=== PATIENT | female | born 1995 | race Caucasian/White ===

== ENCOUNTER 2018-11-06 22:43 | Inpatient (IN) | payer MEDICAID ==
[~2018-11-06 22:43] MED LIST: Oxytocin/0.9 % Sodium Chloride 30 UNIT/500 ML BAG IV SCH
[2018-11-06] MEDS ORDERED: Ondansetron 4 MG/2 ML SDV IVPUSH PRN (23:20)
[2018-11-06] MEDS ORDERED: Terbutaline 1 MG/ML SDV SUBCUT PRN (23:52)
[2018-11-06] MEDS ORDERED: Misoprostol 25 MCG (1/4 of 100 MCG) Tab PO PRN (23:52)
[2018-11-07] MEDS ORDERED: Sodium Chloride 0.9% 10 ML Syringe FLUSH PRN (00:14)
[2018-11-07] MEDS ORDERED: Misoprostol 200 MCG Tab PO PRN (00:14)
[2018-11-07] MEDS ORDERED: Lidocaine 1% 50 ML MDV INJECT PRN (00:14)
[2018-11-07] MEDS ORDERED: Water For Irrigation,Sterile 1,000 ML Container IRR PRN (00:14)
[2018-11-07] MEDS ORDERED: Sodium Chloride 0.9% 2.5 ML Syringe FLUSH PRN (00:14)
[2018-11-07] MEDS ORDERED: Methylergonovine 0.2 MG/1 ML Amp IM PRN (00:14)
[2018-11-07] MEDS ORDERED: Butorphanol 1 MG/ML SDV IVPUSH PRN (00:14)
[2018-11-07] MEDS ORDERED: Carboprost Tromethamine 250 MCG/1 ML Amp IM PRN (00:14)
[2018-11-07] MEDS ORDERED: Sodium Chloride 0.9% 10 ML SDV IV PRN (00:14)
[2018-11-07] MEDS ORDERED: Tranexamic Acid 1,000 MG in Sodium Chloride 0.9% 100 ML IV PRN (00:14)
[2018-11-07] MEDS ORDERED: Oxytocin/0.9 % Sodium Chloride 30 UNIT/500 ML BAG IV SCH (00:15)
[2018-11-07] MEDS: Lactated Ringers 1,000 ML IV SCH ×5 (01:26→06:03)
[2018-11-07] MEDS ORDERED: Ropivacaine HCl/PF 100 ML ONE (03:39)
[2018-11-07] MEDS ORDERED: fentaNYL 100 MCG/2 ML SDV ONE (03:39)
--- NOTE | 2018-11-07 04:02 | PCM.PREANE ---
Preanesthetic Assessment - Anesthesia/Transfusion/Family Hx Anesthesia History: No Prior Anesthesia Family History of Anesthesia Reaction: No Transfusion History: No Prior Transfusion(s) - Review of Systems General: No Symptoms Pulmonary: No Symptoms Cardiovascular: No Symptoms Gastrointestinal: No Symptoms Neurological: No Symptoms Other: Reports: None - Physical Assessment NPO Status Date: 11/07/18 NPO Status Time: 00:30 Height: 1.57 m Weight: 61.235 kg ASA Class: 1 Mental Status: Alert & Oriented x3 Dentition: Reports: Normal Dentition - Lab Values: Laboratory Last Values WBC 11.66 K/uL (4.0-11.0) H 11/07/18 00:30 RBC 3.67 M/uL (4.30-5.90) L 11/07/18 00:30 Hgb 11.1 g/dL (12.0-16.0) L 11/07/18 00:30 Hct 33.7 % (36.0-46.0) L 11/07/18 00:30 MCV 91.8 fL (80.0-98.0) 11/07/18 00:30 MCH 30.2 pg (27.0-32.0) 11/07/18 00:30 MCHC 32.9 g/dL (31.0-37.0) 11/07/18 00:30 RDW Std Deviation 45.7 fl (28.0-62.0) 11/07/18 00:30 RDW Coeff of Alessia 14 % (11.0-15.0) 11/07/18 00:30 Plt Count 176 K/uL (150-400) 11/07/18 00:30 MPV 8.60 fL (7.40-12.00) 11/07/18 00:30 Membrane Rupture POSITIVE 11/06/18 23:15 Blood Type A NEGATIVE 11/07/18 00:30 Antibody Screen NEGATIVE 11/07/18 00:30 - Allergies Allergies/Adverse Reactions: Allergies Allergy/AdvReac Type Severity Reaction Status Date / Time No Known Allergies Allergy Verified 10/06/17 19:14 MDT - Acknowledgements Anesthesia Type Planned: Epidural Pt an Appropriate Candidate for the Planned Anesthesia: Yes Alternatives and Risks of Anesthesia Discussed w Pt/Guardian: Yes Pt/Guardian Understands and Agrees with Anesthesia Plan: Yes PreAnesthesia Questionnaire - Past Health History Medical/Surgical History: Denies Medical/Surgical History HEENT History: Reports: Impaired Vision Cardiovascular History: Reports: Other (See Below) Other Cardiovascular History: 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 Cardiovascular Surgical History: Reports: None GI Surgical History: Reports: None - SUBSTANCE USE Smoking Status *Q: Former Smoker Tobacco Use Within Last Twelve Months: No Second Hand Smoke Exposure: Yes Recreational Drug Use History: No - HOME MEDS Home Medications: Home Meds Cholecalciferol (Vitamin D3) [Vitamin D] 5,000 unit PO WEEKLY 11/06/18 [History] Pnv No.95/Ferrous Fum/Folic AC [ Caplet] 1 each PO DAILY 11/06/18 [ History] - CURRENT (IN HOUSE) MEDS Current Meds: Current Medications Butorphanol Tartrate (Stadol) 1 mg IVPUSH Q1H PRN PRN Reason: Pain Last Admin: 11/07/18 01:04 Dose: 1 mg Carboprost Tromethamine (Hemabate Ds) 250 mcg IM ASDIRECTED PRN PRN Reason: Post Hemorrhage Oxytocin/Sodium Chloride (Oxytocin 30 Unit/500 Ml-Ns) 30 unit in 500 mls @ 2 mls/hr IV TITRATE SU[facility]; Protocol Tranexamic Acid 1,000 mg/ (Sodium Chloride) 110 mls @ 660 mls/hr IV ONETIME PRN PRN Reason: Bleeding Lactated Ringer's (Ringers, Lactated) 1,000 mls @ 150 mls/hr IV ASDIRECTED SUKHI Last Admin: 11/07/18 03:24 Dose: 999 mls/hr Oxytocin/Sodium Chloride (Oxytocin 30 Unit/500 Ml-Ns) 30 unit in 500 mls @ 500 mls/hr IV TITRATE [facility] Lidocaine HCl (Xylocaine 1%) 50 ml INJECT ONETIME PRN PRN Reason: Laceration repair Methylergonovine Maleate (Methergine) 0.2 mg IM ASDIRECTED PRN PRN Reason: Post Hemorrhage Misoprostol (Cytotec) 50 mcg PO ONETIME PRN PRN Reason: Cervical Ripening Last Admin: 11/07/18 00:29 Dose: 50 mcg Misoprostol (Cytotec) 200 mcg PO ONETIME PRN PRN Reason: Post Hemorrhage Ondansetron HCl (Zofran) 4 mg IVPUSH Q4H PRN PRN Reason: Nausea/Vomiting Sodium Chloride (Saline Flush) 10 ml FLUSH ASDIRECTED PRN PRN Reason: Keep Vein Open Sodium Chloride (Saline Flush) 2.5 ml FLUSH ASDIRECTED PRN PRN Reason: Keep Vein Open Sodium Chloride (Normal Saline) 10 ml IV ASDIRECTED PRN PRN Reason: IV Use Sterile Water (Sterile Water For Irrigation) 1,000 ml IRR ASDIRECTED PRN PRN Reason: delivery Terbutaline Sulfate (Brethine) 0.25 mg SUBCUT ASDIRECTED PRN PRN Reason: Tacysystole Discontinued Medications Fentanyl (Sublimaze) Confirm Administered Dose 100 mcg .ROUTE .STK-MED ONE Stop: 11/07/18 03:40 Ropivacaine (Naropin 0.2%) Confirm Administered Dose 100 mls @ as directed .ROUTE .STK-MED ONE Stop: 11/07/18 03:40
--- NOTE | 2018-11-07 04:06 | PCM.PRNOTE ---
- Free Text/Narrative Note: Anes Note Patient request epidural for L&D. Sitting position. Level L2-L3, midline approach. Sterile technique, chloroprrep scrub to lumbar area. Sterile fenestrated drape applied. Epidural space easily achieved single attempt with ease, cath threaded 5 cm with ease.\ at 0352. Sterile dressing applied. Test 0354 3 cc 1.5% lido with epi negative. Load 10 cc 0.2% ropivicaine with 1 mcg cc fentanyl added in slow divided doses at 0356. Pump started with same solution at 0359 Rate is 8 cc hr with 6 cc q 20 min prn bolus. Patient reports excelletn analgesia. Time with patient [id number]. Kurt Adams CRNA
[2018-11-07] MEDS ORDERED: Sodium Chloride 0.9% 100 ML ONE (10:16)
[2018-11-07] MEDS ORDERED: Ampicillin 2 GM AdvVial IV ONE (10:16)
[2018-11-07] MEDS ORDERED: Acetaminophen 1,000 MG in Premix Bag 1 BAG IV ONE (10:25)
[2018-11-07] MEDS ORDERED: Ampicillin 2 GM in Sodium Chloride 0.9% 100 ML IV ONE (10:45)
[2018-11-07] MEDS ORDERED: Witch Hazel Medicated Pads 40/Jar TOP PRN (11:07)
[2018-11-07] MEDS ORDERED: oxyCODONE 5 MG Tab PO PRN (11:07)
[2018-11-07] MEDS ORDERED: Bisacodyl 10 MG Supp RECTAL PRN (11:07)
[2018-11-07] MEDS ORDERED: Ibuprofen 400 MG Tab PO PRN (11:07)
[2018-11-07] MEDS ORDERED: Docusate Sodium 100 MG Cap PO PRN (11:07)
[2018-11-07] MEDS ORDERED: Acetaminophen 500 MG Tab PO PRN ×2 (11:07)
[2018-11-07] MEDS ORDERED: Benzocaine/Menthol 20%-0.5% Spray 78 GM Cannister TOP PRN (11:07)
[2018-11-07] MEDS ORDERED: Lanolin 100% Cream 7 GM Tube TOP PRN (11:07)
--- NOTE | 2018-11-07 11:21 | PCM.DEL ---
L & D Note - General Info Date of Service: 11/07/18 Mother's Due Date: 11/13/18 - Delivery Note Labor: Spontaneous Cervical Ripening Method: Misoprostil, Oxytocin Delivery Outcome: Livebirth Delivery Method: Spontaneous Vaginal Delivery-Single Presentation: Left Occiput Anterior (JAVI) Nuchal Cord: None Anesthesia Type: Epidural Laceration: 1st Degree Suture type: Other (monocryl) Suture size: 2-0 Placenta: Spontaneous Estimated Blood Loss: 350 Resuscitation Needed: No [place]: Suctioned, Cathether, Stimulated, Warmed, Warmer Used Score 1 min: 3 Score 5 min: 9 Delivery Comments (Free Text/Narrative):: Live male delivered at 1035am , 3/9 weight 2190g . - General Info Date of Service: 11/07/18 - Patient Data Weight - Most Recent: 61.235 kg Lab Results Last 24 Hours: Laboratory Results - last 24 hr 11/06/18 11/07/18 11/07/18 Range/Units 23:15 00:30 00:30 WBC 11.66 H (4.0-11.0) K/uL RBC 3.67 L (4.30-5.90) M/uL Hgb 11.1 L (12.0-16.0) g/dL Hct 33.7 L (36.0-46.0) % MCV 91.8 (80.0-98.0) fL MCH 30.2 (27.0-32.0) pg MCHC 32.9 (31.0-37.0) g/dL RDW Std Deviation 45.7 (28.0-62.0) fl RDW Coeff of Alessia 14 (11.0-15.0) % Plt Count 176 (150-400) K/uL MPV 8.60 (7.40-12.00) fL Membrane Rupture POSITIVE Blood Type A NEGATIVE Antibody Screen NEGATIVE Med Orders - Current: Current Medications Acetaminophen (Tylenol Extra Strength) 500 mg PO Q4H PRN PRN Reason: Pain Acetaminophen (Tylenol Extra Strength) 1,000 mg PO Q4H PRN PRN Reason: Pain Benzocaine/Menthol (Dermoplast Pain Relief 20%-0.5% [place]) 78 gm TOP ASDIRECTED PRN PRN Reason: Perineal Comfort Measure Bisacodyl (Dulcolax) 10 mg RECTAL ONETIME PRN PRN Reason: Constipation Butorphanol Tartrate (Stadol) 1 mg IVPUSH Q1H PRN PRN Reason: Pain Last Admin: 11/07/18 01:04 Dose: 1 mg Carboprost Tromethamine (Hemabate Ds) 250 mcg IM ASDIRECTED PRN PRN Reason: Post Hemorrhage Docusate Sodium (Colace) 100 mg PO BID PRN PRN Reason: Constipation Emollient Ointment (Lansinoh Hpa) 0 gm TOP ASDIRECTED PRN PRN Reason: Sore Nipples Oxytocin/Sodium Chloride (Oxytocin 30 Unit/500 Ml-Ns) 30 unit in 500 mls @ 2 mls/hr IV TITRATE SUKHI; Protocol Last Admin: 11/07/18 08:51 Dose: 2 munits/min, 2 mls/hr Tranexamic Acid 1,000 mg/ (Sodium Chloride) 110 mls @ 660 mls/hr IV ONETIME PRN PRN Reason: Bleeding Lactated Ringer's (Ringers, Lactated) 1,000 mls @ 150 mls/hr IV ASDIRECTED SUKHI Last Admin: 11/07/18 06:03 Dose: 150 mls/hr Oxytocin/Sodium Chloride (Oxytocin 30 Unit/500 Ml-Ns) 30 unit in 500 mls @ 500 mls/hr IV TITRATE [facility] Gentamicin Sulfate 80 mg/ (Sodium Chloride) 102 mls @ 196.154 mls/hr IV ONETIME ONE Stop: 11/07/18 11:51 Ibuprofen (Motrin) 400 mg PO Q4H PRN PRN Reason: Pain Ibuprofen (Motrin) 800 mg PO Q6H PRN PRN Reason: Pain Lidocaine HCl (Xylocaine 1%) 50 ml INJECT ONETIME PRN PRN Reason: Laceration repair Methylergonovine Maleate (Methergine) 0.2 mg IM ASDIRECTED PRN PRN Reason: Post Hemorrhage Misoprostol (Cytotec) 50 mcg PO ONETIME PRN PRN Reason: Cervical Ripening Last Admin: 11/07/18 00:29 Dose: 50 mcg Misoprostol (Cytotec) 200 mcg PO ONETIME PRN PRN Reason: Post Hemorrhage Ondansetron HCl (Zofran) 4 mg IVPUSH Q4H PRN PRN Reason: Nausea/Vomiting Oxycodone HCl (Oxycodone) 5 mg PO Q2H PRN PRN Reason: Pain Sodium Chloride (Saline Flush) 10 ml FLUSH ASDIRECTED PRN PRN Reason: Keep Vein Open Sodium Chloride (Saline Flush) 2.5 ml FLUSH ASDIRECTED PRN PRN Reason: Keep Vein Open Sodium Chloride (Normal Saline) 10 ml IV ASDIRECTED PRN PRN Reason: IV Use Sterile Water (Sterile Water For Irrigation) 1,000 ml IRR ASDIRECTED PRN PRN Reason: delivery Last Admin: 11/07/18 10:34 Dose: 1,000 ml Terbutaline Sulfate (Brethine) 0.25 mg SUBCUT ASDIRECTED PRN PRN Reason: Tacysystole Last Admin: 11/07/18 04:32 Dose: 0.25 mg Witch Robyn (Tucks) 1 pad TOP ASDIRECTED PRN PRN Reason: comfort care Discontinued Medications Ampicillin Sodium (Ampicillin) Confirm Administered Dose 2 gm IV .STK-MED ONE Stop: 11/07/18 10:17 Last Admin: 11/07/18 10:20 Dose: 2 gm Fentanyl (Sublimaze) Confirm Administered Dose 100 mcg .ROUTE .STK-MED ONE Stop: 11/07/18 03:40 Ropivacaine (Naropin 0.2%) Confirm Administered Dose 100 mls @ as directed .ROUTE .STK-MED ONE Stop: 11/07/18 03:40 Ampicillin Sodium 2 gm/ Sodium (Chloride) 100 mls @ 200 mls/hr IV ONETIME ONE Stop: 11/07/18 11:14 Sodium Chloride (Normal Saline) Confirm Administered Dose 100 mls @ as directed .ROUTE .STK-MED ONE Stop: 11/07/18 10:17 Last Admin: 11/07/18 10:20 Dose: 200 mls/hr Acetaminophen 1,000 mg/ Premix 100 mls @ 400 mls/hr IV NOW ONE Stop: 11/07/18 10:39 Acetaminophen (Ofirmev) Confirm Administered Dose 100 mls @ as directed IV .STK- MED ONE Stop: 11/07/18 10:29 Last Admin: 11/07/18 10:33 Dose: Not Given - Problem List & Annotations (1) Vaginal delivery SNOMED Code(s): 875815074 Code(s): O80 - ENCOUNTER FOR FULL-TERM UNCOMPLICATED DELIVERY Status: Acute Current Visit: Yes - Problem List Review Problem List Initiated/Reviewed/Updated: Yes - My Orders Last 24 Hours: My Active Orders 11/06/18 23:20 Ondansetron [Zofran] 4 mg IVPUSH Q4H PRN 11/06/18 23:52 Terbutaline [Brethine] 0.25 mg SUBCUT ASDIRECTED PRN miSOPROStol [Cytotec] 50 mcg PO ONETIME PRN 11/06/18 23:53 Bedrest Bathroom Privileges [RC] ASDIRECTED Communication Order [RC] ASDIRECTED Oxygen Therapy [RC] ASDIRECTED Vital Signs [RC] PER UNIT ROUTINE Medication Administration Instruction [OM.PC] Q3H 11/07/18 00:14 Butorphanol [Stadol] 1 mg IVPUSH Q1H PRN Carboprost Tromethamine [Hemabate DS] 250 mcg IM ASDIRECTED PRN Lidocaine 1% [Xylocaine 1%] 50 ml INJECT ONETIME PRN Methylergonovine [Methergine] 0.2 mg IM ASDIRECTED PRN Sodium Chloride 0.9% [Normal Saline] 10 ml IV ASDIRECTED PRN Sodium Chloride 0.9% [Saline Flush] 10 ml FLUSH ASDIRECTED PRN Sodium Chloride 0.9% [Saline Flush] 2.5 ml FLUSH ASDIRECTED PRN Tranexamic Acid [Cyklokapron] 1,000 mg Sodium Chloride 0.9% [Normal Saline] 100 ml IV ONETIME Water For Irrigation,Sterile [Sterile Water for Irrigation] 1,000 ml IRR ASDIRECTED PRN miSOPROStol [Cytotec] 200 mcg PO ONETIME PRN 11/07/18 00:15 Patient Status [ADT] Routine May Shower [RC] ASDIRECTED Notify Provider [RC] PRN Up ad Danita [RC] ASDIRECTED Lactated Ringers [Ringers, Lactated] 1,000 ml IV ASDIRECTED Oxytocin/0.9 % Sodium Chloride [Oxytocin 30 Unit/500 ML-NS] 30 unit in 500 ml IV TITRATE Peripheral IV Insertion Adult [OM.PC] Routine 11/07/18 11:07 Patient Status [ADT] Routine May Shower [RC] ASDIRECTED Up ad Danita [RC] ASDIRECTED Vital Signs [RC] PER UNIT ROUTINE BLOOD GAS ARTERIAL UMBILICAL [BG] Urgent BLOOD GAS VENOUS UMBILICAL [BG] Urgent Acetaminophen [Tylenol Extra Strength] 1,000 mg PO Q4H PRN Acetaminophen [Tylenol Extra Strength] 500 mg PO Q4H PRN Benzocaine/Menthol [Dermoplast Pain Relief 20%-0.5% [place]] 78 gm TOP ASDIRECTED PRN Bisacodyl [Dulcolax] 10 mg RECTAL ONETIME PRN Docusate Sodium [Colace] 100 mg PO BID PRN Ibuprofen [Motrin] 400 mg PO Q4H PRN Ibuprofen [Motrin] 800 mg PO Q6H PRN Lanolin [Lansinoh HPA] See Dose Instructions TOP ASDIRECTED PRN Witch Robyn [Tucks] 1 pad TOP ASDIRECTED PRN oxyCODONE 5 mg PO Q2H PRN Assess Lochia [WOMSER] Per Unit Routine Assess Uterine Involution [WOMSER] Per Unit Routine Peripheral IV Discontinue [OM.PC] Routine 11/07/18 11:10 Vital Signs [RC] PER UNIT ROUTINE RHIG WORKUP, [BBK] Routine 11/07/18 11:20 Gentamicin 80 mg Sodium Chloride 0.9% [Normal Saline] 100 ml IV ONETIME 11/08/18 05:11 HEMOGLOBIN/HEMATOCRIT,HH [HEME] Timed
[2018-11-07] MEDS: Ibuprofen 800 MG Tab PO PRN (14:22)
--- NOTE | 2018-11-08 10:35 | PCM.PNPP ---
- General Info Date of Service: 11/08/18 Subjective Update: 22yo P1 s/p PPD1 ambulating , voiding and tolerating regular diet SGA , Bottle feeding Functional Status: Reports: Pain Controlled, Tolerating Diet, Ambulating - Review of Systems General: Reports: No Symptoms HEENT: Reports: No Symptoms Pulmonary: Reports: No Symptoms Cardiovascular: Reports: No Symptoms Gastrointestinal: Reports: No Symptoms Genitourinary: Reports: No Symptoms Musculoskeletal: Reports: No Symptoms Skin: Reports: No Symptoms Neurological: Reports: No Symptoms Psychiatric: Reports: No Symptoms - General Info Date of Service: 11/08/18 - Patient Data Vital Signs - Most Recent: Last Vital Signs Temp 36.4 C 11/08/18 09:42 Pulse 85 11/08/18 09:42 Resp 16 11/08/18 09:42 BP 111/74 11/08/18 09:42 Pulse Ox 96 11/08/18 09:42 Weight - Most Recent: 61.235 kg I&O - Last 24 Hours: Intake & Output 11/07/18 11/08/18 11/08/18 22:59 06:59 14:59 Intake Total 2 Balance 2 Lab Results - Last 24 Hours: Laboratory Results - last 24 hr 11/07/18 11/07/18 11/08/18 Range/Units 10:35 11:45 05:55 Hgb 8.6 L (12.0-16.0) g/dL Hct 26.9 L (36.0-46.0) % Cord ABG pH (7.18-7.38) Cord ABG Base Excess (-10--2) Cord VBG pH 7.240 L (7.25-7.45) Cord VBG Base Excess -9 (-10--2) Screen NEGATIVE (NEGATIVE) RhIG Candidate? YES Rhogam Indicated YES, BABY RH POS H Med Orders - Current: Current Medications Acetaminophen (Tylenol Extra Strength) 500 mg PO Q4H PRN PRN Reason: Pain Last Admin: 11/07/18 22:43 Dose: 500 mg Acetaminophen (Tylenol Extra Strength) 1,000 mg PO Q4H PRN PRN Reason: Pain Benzocaine/Menthol (Dermoplast Pain Relief 20%-0.5% [place]) 78 gm TOP ASDIRECTED PRN PRN Reason: Perineal Comfort Measure Bisacodyl (Dulcolax) 10 mg RECTAL ONETIME PRN PRN Reason: Constipation Butorphanol Tartrate (Stadol) 1 mg IVPUSH Q1H PRN PRN Reason: Pain Last Admin: 11/07/18 01:04 Dose: 1 mg Carboprost Tromethamine (Hemabate Ds) 250 mcg IM ASDIRECTED PRN PRN Reason: Post Hemorrhage Docusate Sodium (Colace) 100 mg PO BID PRN PRN Reason: Constipation Emollient Ointment (Lansinoh Hpa) 0 gm TOP ASDIRECTED PRN PRN Reason: Sore Nipples Oxytocin/Sodium Chloride (Oxytocin 30 Unit/500 Ml-Ns) 30 unit in 500 mls @ 2 mls/hr IV TITRATE [facility]; Protocol Last Admin: 11/07/18 08:51 Dose: 2 munits/min, 2 mls/hr Tranexamic Acid 1,000 mg/ (Sodium Chloride) 110 mls @ 660 mls/hr IV ONETIME PRN PRN Reason: Bleeding Lactated Ringer's (Ringers, Lactated) 1,000 mls @ 150 mls/hr IV ASDIRECTED SUKHI Last Admin: 11/07/18 06:03 Dose: 150 mls/hr Oxytocin/Sodium Chloride (Oxytocin 30 Unit/500 Ml-Ns) 30 unit in 500 mls @ 500 mls/hr IV TITRATE [facility] Last Admin: 11/07/18 10:40 Dose: 500 mls/hr Ibuprofen (Motrin) 400 mg PO Q4H PRN PRN Reason: Pain Ibuprofen (Motrin) 800 mg PO Q6H PRN PRN Reason: Pain Last Admin: 11/07/18 14:22 Dose: 800 mg Lidocaine HCl (Xylocaine 1%) 50 ml INJECT ONETIME PRN PRN Reason: Laceration repair Methylergonovine Maleate (Methergine) 0.2 mg IM ASDIRECTED PRN PRN Reason: Post Hemorrhage Misoprostol (Cytotec) 50 mcg PO ONETIME PRN PRN Reason: Cervical Ripening Last Admin: 11/07/18 00:29 Dose: 50 mcg Misoprostol (Cytotec) 200 mcg PO ONETIME PRN PRN Reason: Post Hemorrhage Ondansetron HCl (Zofran) 4 mg IVPUSH Q4H PRN PRN Reason: Nausea/Vomiting Oxycodone HCl (Oxycodone) 5 mg PO Q2H PRN PRN Reason: Pain Sodium Chloride (Saline Flush) 10 ml FLUSH ASDIRECTED PRN PRN Reason: Keep Vein Open Sodium Chloride (Saline Flush) 2.5 ml FLUSH ASDIRECTED PRN PRN Reason: Keep Vein Open Sodium Chloride (Normal Saline) 10 ml IV ASDIRECTED PRN PRN Reason: IV Use Sterile Water (Sterile Water For Irrigation) 1,000 ml IRR ASDIRECTED PRN PRN Reason: delivery Last Admin: 11/07/18 10:34 Dose: 1,000 ml Terbutaline Sulfate (Brethine) 0.25 mg SUBCUT ASDIRECTED PRN PRN Reason: Tacysystole Last Admin: 11/07/18 04:32 Dose: 0.25 mg Witch Robyn (Tucks) 1 pad TOP ASDIRECTED PRN PRN Reason: comfort care Discontinued Medications Ampicillin Sodium (Ampicillin) Confirm Administered Dose 2 gm IV .STK-MED ONE Stop: 11/07/18 10:17 Last Admin: 11/07/18 10:20 Dose: 2 gm Fentanyl (Sublimaze) Confirm Administered Dose 100 mcg .ROUTE .STK-MED ONE Stop: 11/07/18 03:40 Last Admin: 11/08/18 09:52 Dose: Not Given Ropivacaine (Naropin 0.2%) Confirm Administered Dose 100 mls @ as directed .ROUTE .STK-MED ONE Stop: 11/07/18 03:40 Last Admin: 11/08/18 09:52 Dose: Not Given Ampicillin Sodium 2 gm/ Sodium (Chloride) 100 mls @ 200 mls/hr IV ONETIME ONE Stop: 11/07/18 11:14 Gentamicin Sulfate 80 mg/ (Sodium Chloride) 102 mls @ 196.154 mls/hr IV ONETIME ONE Stop: 11/07/18 11:51 Last Admin: 11/07/18 11:21 Dose: 196.154 mls/hr Sodium Chloride (Normal Saline) Confirm Administered Dose 100 mls @ as directed .ROUTE .STK-MED ONE Stop: 11/07/18 10:17 Last Admin: 11/07/18 10:20 Dose: 200 mls/hr Acetaminophen 1,000 mg/ Premix 100 mls @ 400 mls/hr IV NOW ONE Stop: 11/07/18 10:39 Acetaminophen (Ofirmev) Confirm Administered Dose 100 mls @ as directed IV .STK- MED ONE Stop: 11/07/18 10:29 Last Admin: 11/07/18 10:33 Dose: Not Given - Interaction Support Person: Significant Other - Recovery Exam Fundal Tone: Firm Fundal Level: 1 Fingerbreadths Below Umbilicus Fundal Placement: Midline Lochia Amount: Scant Lochia Color: Rubra/Red Perineum Description: Edematous, Other (see below) Other Perinuem Description: 1 degree laceration. Episiotomy/Laceration: Approximated Bladder Status: Voiding Urinary Elimination: Voided - Exam General: Alert, Oriented HEENT: Pupils Equal Neck: Supple Lungs: Clear to Auscultation Cardiovascular: Regular Rate, Regular Rhythm GI/Abdominal Exam: Normal Bowel Sounds Extremities: Normal Inspection Neurological: No New Focal Deficit Psy/Mental Status: Alert - Problem List & Annotations (1) Vaginal delivery SNOMED Code(s): 331659400 Code(s): O80 - ENCOUNTER FOR FULL-TERM UNCOMPLICATED DELIVERY Status: Acute Current Visit: Yes - Problem List Review Problem List Initiated/Reviewed/Updated: Yes - My Orders Last 24 Hours: My Active Orders 11/07/18 11:07 Patient Status [ADT] Routine May Shower [RC] ASDIRECTED Up ad Danita [RC] ASDIRECTED Acetaminophen [Tylenol Extra Strength] 1,000 mg PO Q4H PRN Acetaminophen [Tylenol Extra Strength] 500 mg PO Q4H PRN Benzocaine/Menthol [Dermoplast Pain Relief 20%-0.5% [place]] 78 gm TOP ASDIRECTED PRN Bisacodyl [Dulcolax] 10 mg RECTAL ONETIME PRN Docusate Sodium [Colace] 100 mg PO BID PRN Ibuprofen [Motrin] 400 mg PO Q4H PRN Ibuprofen [Motrin] 800 mg PO Q6H PRN Lanolin [Lansinoh HPA] See Dose Instructions TOP ASDIRECTED PRN Witch Robyn [Tucks] 1 pad TOP ASDIRECTED PRN oxyCODONE 5 mg PO Q2H PRN Assess Lochia [WOMSER] Per Unit Routine Assess Uterine Involution [WOMSER] Per Unit Routine Peripheral IV Discontinue [OM.PC] Routine 11/07/18 11:10 Vital Signs [RC] PER UNIT ROUTINE 11/07/18 14:31 Consult to Case Management/Production Mechanic [employer] [CONS] Routine 11/07/18 Dinner Regular Diet [DIET] - Assessment Assessment:: 22yo P1 s/p PPD1 ambulating , voiding and tolerating regular diet SGA , Bottle feeding - Plan Plan:: Routine Possible discharge tomorrow after social work consult
--- NOTE | 2018-11-08 11:15 | OR ---
SURGEON: DAVID VASQUEZ DATE OF PROCEDURE: PREOPERATIVE DIAGNOSES: A 22-year-old G1, P0, 39 weeks and 1 day, intrauterine growth restriction, pre- labor rupture of membranes, Rh negative. POSTOPERATIVE DIAGNOSES: A 22-year-old G1, P0, 39 weeks and 1 day, intrauterine growth restriction, pre- labor rupture of membranes, Rh negative. PROCEDURE PERFORMED: Normal spontaneous vaginal delivery and repair of first-degree vaginal laceration. ESTIMATED BLOOD LOSS: 350. ANESTHESIA: Epidural. NOTES AND FINDINGS: Live male delivered at 10:35 a.m. score of 3 and 9, weight is 2190 g. BRIEF HISTORY: She is a 22-year-old G1, P0, 39 weeks and 1 day, who came in complaining, was transferred from [place] as a result of rupture of membranes. The patient's record was reviewed, was noted to be intrauterine growth restriction, A negative. Induction of labor. The patient came in, she was about 2 to 3 cm dilated. She was given oral Cytotec, after which she was making contractions on her own. She subsequently became 6 cm dilated. The patient was noted to have some late deceleration, and at that point had prolonged deceleration and received terbutaline. At this point, the patient was observed, tracing recovered. The patient was examined, she was about 8 to 9 cm dilated. She was 8 to 9 for a while, so Pitocin was started at 3 minutes. The patient was encouraged to bear down when she was full, when she pushed. With good pushing effort, the patient delivered the head, subsequently by the anterior and posterior shoulder. The cord was around the body of the baby. Cord was clamped and cut. Thick meconium was noted. The patient was handed over to the waiting general scrap worker. Pelvis was inspected, noted to be first-degree laceration, which was repaired. Cord blood gases were obtained. The placenta was then delivered via controlled cord traction. All instrument and pad count were correct x2. BRITTANY / [place] /[id number]
[2018-11-08] MEDS: Ibuprofen 800 MG Tab PO PRN (12:19)
[2018-11-09 09:15] VITALS: BP 105/75
--- NOTE | 2018-11-09 11:09 | PCM.PNPP ---
- General Info Date of Service: 11/09/18 Functional Status: Reports: Pain Controlled, Tolerating Diet, Ambulating, Urinating - Review of Systems General: Denies: Fever, Weakness Pulmonary: Denies: Shortness of Breath Cardiovascular: Denies: Chest Pain, Palpitations, Lightheadedness Gastrointestinal: Denies: Abdominal Pain, Nausea, Vomiting Genitourinary: Denies: Flank Pain Musculoskeletal: Reports: No Symptoms Skin: Reports: No Symptoms Neurological: Reports: No Symptoms Psychiatric: Reports: No Symptoms - General Info Date of Service: 11/09/18 - Patient Data Vital Signs - Most Recent: Last Vital Signs Temp 37.0 C 11/09/18 08:22 Pulse 78 11/09/18 08:22 Resp 17 11/09/18 08:22 BP 105/75 11/09/18 08:22 Pulse Ox 99 11/09/18 08:22 Weight - Most Recent: 61.235 kg Med Orders - Current: Current Medications Acetaminophen (Tylenol Extra Strength) 500 mg PO Q4H PRN PRN Reason: Pain Last Admin: 11/07/18 22:43 Dose: 500 mg Acetaminophen (Tylenol Extra Strength) 1,000 mg PO Q4H PRN PRN Reason: Pain Benzocaine/Menthol (Dermoplast Pain Relief 20%-0.5% [place]) 78 gm TOP ASDIRECTED PRN PRN Reason: Perineal Comfort Measure Last Admin: 11/08/18 16:58 Dose: 1 bottle Bisacodyl (Dulcolax) 10 mg RECTAL ONETIME PRN PRN Reason: Constipation Butorphanol Tartrate (Stadol) 1 mg IVPUSH Q1H PRN PRN Reason: Pain Last Admin: 11/07/18 01:04 Dose: 1 mg Carboprost Tromethamine (Hemabate Ds) 250 mcg IM ASDIRECTED PRN PRN Reason: Post Hemorrhage Docusate Sodium (Colace) 100 mg PO BID PRN PRN Reason: Constipation Emollient Ointment (Lansinoh Hpa) 0 gm TOP ASDIRECTED PRN PRN Reason: Sore Nipples Oxytocin/Sodium Chloride (Oxytocin 30 Unit/500 Ml-Ns) 30 unit in 500 mls @ 2 mls/hr IV TITRATE SUKHI; Protocol Last Admin: 11/07/18 08:51 Dose: 2 munits/min, 2 mls/hr Tranexamic Acid 1,000 mg/ (Sodium Chloride) 110 mls @ 660 mls/hr IV ONETIME PRN PRN Reason: Bleeding Lactated Ringer's (Ringers, Lactated) 1,000 mls @ 150 mls/hr IV ASDIRECTED SUKHI Last Admin: 11/07/18 06:03 Dose: 150 mls/hr Oxytocin/Sodium Chloride (Oxytocin 30 Unit/500 Ml-Ns) 30 unit in 500 mls @ 500 mls/hr IV TITRATE [facility] Last Admin: 11/07/18 10:40 Dose: 500 mls/hr Ibuprofen (Motrin) 400 mg PO Q4H PRN PRN Reason: Pain Ibuprofen (Motrin) 800 mg PO Q6H PRN PRN Reason: Pain Last Admin: 11/08/18 12:19 Dose: 800 mg Lidocaine HCl (Xylocaine 1%) 50 ml INJECT ONETIME PRN PRN Reason: Laceration repair Methylergonovine Maleate (Methergine) 0.2 mg IM ASDIRECTED PRN PRN Reason: Post Hemorrhage Misoprostol (Cytotec) 50 mcg PO ONETIME PRN PRN Reason: Cervical Ripening Last Admin: 11/07/18 00:29 Dose: 50 mcg Misoprostol (Cytotec) 200 mcg PO ONETIME PRN PRN Reason: Post Hemorrhage Ondansetron HCl (Zofran) 4 mg IVPUSH Q4H PRN PRN Reason: Nausea/Vomiting Oxycodone HCl (Oxycodone) 5 mg PO Q2H PRN PRN Reason: Pain Sodium Chloride (Saline Flush) 10 ml FLUSH ASDIRECTED PRN PRN Reason: Keep Vein Open Sodium Chloride (Saline Flush) 2.5 ml FLUSH ASDIRECTED PRN PRN Reason: Keep Vein Open Sodium Chloride (Normal Saline) 10 ml IV ASDIRECTED PRN PRN Reason: IV Use Sterile Water (Sterile Water For Irrigation) 1,000 ml IRR ASDIRECTED PRN PRN Reason: delivery Last Admin: 11/07/18 10:34 Dose: 1,000 ml Terbutaline Sulfate (Brethine) 0.25 mg SUBCUT ASDIRECTED PRN PRN Reason: Tacysystole Last Admin: 11/07/18 04:32 Dose: 0.25 mg Witch Robyn (Tucks) 1 pad TOP ASDIRECTED PRN PRN Reason: comfort care Last Admin: 11/08/18 16:56 Dose: 1 canister Discontinued Medications Ampicillin Sodium (Ampicillin) Confirm Administered Dose 2 gm IV .STK-MED ONE Stop: 11/07/18 10:17 Last Admin: 11/07/18 10:20 Dose: 2 gm Fentanyl (Sublimaze) Confirm Administered Dose 100 mcg .ROUTE .STK-MED ONE Stop: 11/07/18 03:40 Last Admin: 11/08/18 09:52 Dose: Not Given Ropivacaine (Naropin 0.2%) Confirm Administered Dose 100 mls @ as directed .ROUTE .STK-MED ONE Stop: 11/07/18 03:40 Last Admin: 11/08/18 09:52 Dose: Not Given Ampicillin Sodium 2 gm/ Sodium (Chloride) 100 mls @ 200 mls/hr IV ONETIME ONE Stop: 11/07/18 11:14 Gentamicin Sulfate 80 mg/ (Sodium Chloride) 102 mls @ 196.154 mls/hr IV ONETIME ONE Stop: 11/07/18 11:51 Last Admin: 11/07/18 11:21 Dose: 196.154 mls/hr Sodium Chloride (Normal Saline) Confirm Administered Dose 100 mls @ as directed .ROUTE .STK-MED ONE Stop: 11/07/18 10:17 Last Admin: 11/07/18 10:20 Dose: 200 mls/hr Acetaminophen 1,000 mg/ Premix 100 mls @ 400 mls/hr IV NOW ONE Stop: 11/07/18 10:39 Acetaminophen (Ofirmev) Confirm Administered Dose 100 mls @ as directed IV .STK- MED ONE Stop: 11/07/18 10:29 Last Admin: 11/07/18 10:33 Dose: Not Given - Interaction Support Person: Significant Other - Recovery Exam Fundal Tone: Firm Fundal Level: At Umbilicus Fundal Placement: Midline Lochia Amount: Small Lochia Color: Rubra/Red Perineum Description: Edematous Other Perinuem Description: 1 degree laceration. Episiotomy/Laceration: Approximated Bladder Status: Nonpalpable Urinary Elimination: Voided - Exam General: Alert, Oriented Lungs: Normal Respiratory Effort Cardiovascular: Regular Rate, Regular Rhythm GI/Abdominal Exam: Normal Bowel Sounds, Soft Extremities: Pedal Edema (trace). No: Miguel's Sign Skin: Warm, Dry, Intact Neurological: No New Focal Deficit Psy/Mental Status: Alert, Normal Affect - Problem List & Annotations (1) Vaginal delivery SNOMED Code(s): 672478980 Code(s): O80 - ENCOUNTER FOR FULL-TERM UNCOMPLICATED DELIVERY Status: Acute Current Visit: Yes - Problem List Review Problem List Initiated/Reviewed/Updated: Yes - My Orders Last 24 Hours: My Active Orders 11/09/18 11:06 Ready for Discharge [RC] PER UNIT ROUTINE - Assessment Assessment:: 22yo P1 s/p PPD2 SGA , Bottle feeding - Plan Plan:: Patient has been evaluated by web content & social media manager. Plans to move to [place] and live with her mother. Discharge to home today. Discharge instructions reviewed. Follow up at 6 weeks for exam. Infection and bleeding warnings reviewed.
== END 2018-11-09 13:39 | disposition home or self-care (01) | DRG 807 ==
LOC: MW.OBCHECK 22:43 → MW.OB 22:45 → MW.OBCHECK 11-07 03:23 → MW.OB 11-07 03:24 → OBSVTOIN 11-07 10:35 → MW.OB 11-07 15:53
PROVIDERS: ADMIT Obstetrics & Gynecology; ATTEND Obstetrics & Gynecology
PROC: 10E0XZZ Delivery of Products of Conception, External Approach (ICD-10-PCS; principal; 2018-11-07)
PROC: 0HQ9XZZ Repair Perineum Skin, External Approach (ICD-10-PCS; 2018-11-07)
PROC: 4A1HXCZ Monitoring of Products of Conception, Cardiac Rate, External Approach (ICD-10-PCS; 2018-11-07)
PROC: 3E0P7VZ Introduction of Hormone into Female Reproductive, Via Natural or Artificial Opening (ICD-10-PCS; 2018-11-07)
PROC: 3E0R3BZ Introduction of Anesthetic Agent into Spinal Canal, Percutaneous Approach (ICD-10-PCS; 2018-11-07)
PROC: 00HU33Z Insertion of Infusion Device into Spinal Canal, Percutaneous Approach (ICD-10-PCS; 2018-11-07)
DX: O36.5930 Maternal care for other known or suspected poor fetal growth, third trimester, not applicable or unspecified (principal); Z37.0 Single live birth; O70.0 First degree perineal laceration during delivery; O76 Abnormality in fetal heart rate and rhythm complicating labor and delivery; Z87.891 Personal history of nicotine dependence; Z3A.39 39 weeks gestation of pregnancy; O77.0 Labor and delivery complicated by meconium in amniotic fluid
CPT/HCPCS: 36415; 36430; 51702; 59025; 59409; 82803; 84112; 85014; 85018; 85027; 85460; 86850; 86900; 86901; A9270-GY; J0131; J0290; J0595; J1580; J2590; J2792; J2795; J3010; J3105; J7030; J7120